=== PATIENT | male | born 1955 | race Caucasian/White ===

== ENCOUNTER → 2017-07-09 | Outpatient (CLI) | payer OTHER ==
[2017-07-09 08:05] LABS: ALT 67 U/L (21-72); AST 109 U/L (17-59); Alkaline Phosphatase 220 U/L (38-126); Anion Gap 9 mmol/L; Blood Urea Nitrogen 8 mg/dL (9-20); Calcium 8.9 mg/dL (8.4-10.2); Carbon Dioxide 27 mmol/L (22-30); Chloride 106 mmol/L (98-107); Glucose 96 mg/dL (74-99); Non-African American GFR(MDRD) >60 (>60 ml/min/1.73 sqM); Sodium 142 mmol/L (137-145); Total Bilirubin 1.8 mg/dL (0.2-1.3); Total Protein 6.5 g/dL (6.3-8.2)
[2017-07-09 08:11] LABS: CH 32.6; CHCM 33.1; HCT 46.8 % (39.0-53.0); HDW 2.28; HGB 15.7 gm/dL (13.0-17.5); MCH 33.3 pg (25.0-35.0); MCHC 33.6 g/dL (31.0-37.0); Mean Platelet Volume 7.6; RBC 4.72 m/uL (4.30-5.90); RDW 14.5 % (11.5-15.5); WBC 8.2 k/uL (3.8-10.6)
[2017-07-09 10:21] LABS: Vitamin B12 559 pg/mL (239-931)
--- NOTE | 2017-07-09 10:28 | MR ---
EXAMINATION TYPE: MR lumbar spine wo/w con DATE OF EXAM: 07/09/2017 COMPARISON: 11/07/2013 Contrast: Gadavist 8.5 mL HISTORY: Low back pain, difficulty walking TECHNIQUE: T1 and T2 axial and sagittal, postcontrast T1 sagittal and axial images of the lumbar spi ne are submitted. FINDINGS: There is no abnormal signal seen within the visualized spinal cord or paraspinal soft tissu es. Simple appearing renal cysts noted. At T12-L1 there is degenerative disc disease. Hypertrophy of the facet joint with far left lateral di sc bulging results in moderate to severe left-sided foraminal encroachment. No Canal stenosis. At L1-2 there is is loss of disc signal compatible degenerative disc disease. Moderate hypertrophic c hange of the facets seen. Neural foramina are patent. Circumferential disc bulging and borderline can al stenosis. Schmorl's node inferior endplate L1. At L2-3 there is mild degenerative disc disease and facet hypertrophy. Mild circumferential disc bulg ing but no discrete herniation or canal stenosis. Mild left foraminal encroachment noted. At L3-4 there is mild degenerative disc disease and facet hypertrophy. Mild circumferential disc bulg ing but no discrete herniation. Borderline canal stenosis noted and Bilateral mild foraminal encroach ment. At L4-5 there is mild degenerative disc disease and facet hypertrophy. Mild circumferential disc bulg ing but no discrete herniation. Mild bilateral foraminal encroachment noted. There is borderline zahra l stenosis. At L5-S1 there is degenerative disc disease but no evidence of canal stenosis or herniation. Neural f oramina are patent. Facet arthropathy is stable. IMPRESSION- 1. Multilevel degenerative disc disease and mild disc bulging with no discrete herniation. Borderline canal stenosis at L2-L3, L3-L4 and L4-L5 appears stable. 2. Multilevel mild foraminal encroachment.
== END | disposition home or self-care (01) ==
LOC: RADMRIMAIN 07:31
PROVIDERS: ATTEND Physician Assistant
DX: M48.06 Spinal stenosis, lumbar region (principal); M51.36 Other intervertebral disc degeneration, lumbar region; M51.26 Other intervertebral disc displacement, lumbar region
CPT/HCPCS: 84439; 84481; 80053; 82607; 84443; 85027; 72158; A9581

== ENCOUNTER → 2018-01-31 | Outpatient (CLI) | payer OTHER ==
[2018-01-31 11:08] LABS: Blood Urea Nitrogen 15 mg/dL (9-20)
--- NOTE | 2018-01-31 13:39 | MR ---
EXAMINATION TYPE: MR brain wo/w con DATE OF EXAM: 01/31/2018 1:30 PM COMPARISON: 11/07/2013 HISTORY: Headache CONTRAST: Patient received 8.5 mL intravenous Gadavist gadolinium contrast. Multiplanar and multispin-echo imaging of the brain was performed . Pre and post contrast enhanced i mages are obtained. The ventricles, basal cisterns and sulci overlying the cerebral convexities are mildly enlarged. There is evidence of mild periventricular white matter ischemic demyelination. Mild prominence of th e perivascular spaces. Remote deep white matter insults are also noted. No acute edema is seen on diffusion weighted imaging. There is no evidence for midline shift or mass effect. Acute intracranial hemorrhage or extra-axial collection is not evident. No enhancing lesions are seen. The paranasal sinuses and mastoid air cells are well-aerated. IMPRESSION: Age-related atrophic and chronic small vessel ischemic change. No acute intracranial process at this time. No enhancing lesions are seen.
== END ==
LOC: RADMRIMAIN 10:12
PROVIDERS: ATTEND Psychiatry & Neurology Neurology
DX: G31.1 Senile degeneration of brain, not elsewhere classified (principal); I67.82 Cerebral ischemia; R51 Headache
CPT/HCPCS: 82565; 84520; 70553; 36415; A9581

== ENCOUNTER 2018-02-25 10:07 | Emergency (ER) | payer OTHER ==
[2018-02-25] MEDS ORDERED: SODIUM CHLORIDE 0.9% 500 ML IV STA (10:28)
[2018-02-25] MEDS ORDERED: SODIUM CHLORIDE 0.9% 1,000 ML IV STA (10:28)
[2018-02-25] MEDS ORDERED: RX INFO: IV CONTRAST WAS GIVEN 1 EACH MISC MISCELLANE PRN (10:29)
[2018-02-25] MEDS ORDERED: MORPHINE SULFATE 4 MG/0.8 ML SYRINGE (INJ) IV STA (10:29)
[2018-02-25] MEDS ORDERED: IPRATROPIUM-ALBUTEROL 3 ML NEB INHALATION STA (10:38)
--- NOTE | 2018-02-25 10:38 | ED ---
ENT HPI - General Chief complaint: ENT Stated complaint: Neck Mass Time Seen by Provider: 02/25/18 10:19 Source: patient Mode of arrival: wheelchair Limitations: no limitations - History of Present Illness Initial comments: This 62-year-old white male presents with a complaint of some swelling and pain to his right neck. This is been going on for approximately 3 months. It has been progressively worsening. He now states that he has pain with any movement of his neck. He also has difficulty with swallowing. He has not been able to eat for the last 2 days. He has been able to tolerate very minimal fluids. He states that when he tries to swallow it comes back up through his nose. He also has had occasional shortness of breath but denies any chest pain or fevers. He was told several months ago that he may have some throat cancer but has not really followed up with this. He was supposed to follow up with ENT in get a biopsy but apparently did not for some reason. He does also related having some changes in his voice. His symptoms have worsened over the past couple of days. He followed up with Dr. Yang for his chronic back pain this morning and was sent to the ER for further evaluation. No other complaints or modifying factors. He states that his chronic back pain is unchanged. - Related Data Home Medications Medication Instructions Recorded Confirmed Albuterol Inhaler [Ventolin Hfa 2 puff INHALATION RT-Q4H 02/25/18 02/25/18 Inhaler] Cyclobenzaprine HCl 10 mg PO TID PRN 02/25/18 02/25/18 Ibuprofen [Ibuprofen] 800 mg PO Q8H PRN 02/25/18 02/25/18 Allergies Allergy/AdvReac Type Severity Reaction Status Date / Time No Known Allergies Allergy Verified 02/25/18 10:22 Review of Systems ROS Statement: Those systems with pertinent positive or pertinent negative responses have been documented in the HPI. ROS Other: All systems not noted in ROS Statement are negative. Past Medical History Past Medical History: Cancer, CVA/TIA, Osteoarthritis (OA), Seizure Disorder Additional Past Medical History / Comment(s): HX OF CVA, HAS SOME LT SIDE WEAKNESS, SLURRED SPEECH. SEIZURE MANY YRS AGO X1 AFTER ATTEMPT TO QUIT ALCOHOL USE. HX SUSPECTED DVT LT LEG, SURGERY DONE, NONE FOUND. History of Any Multi-Drug Resistant Organisms: None Reported Past Surgical History: Bladder Surgery Additional Past Surgical History / Comment(s): LT LEG EXPLORATION FOR POSS DVT, NONE FOUND. Past Anesthesia/Blood Transfusion Reactions: No Reported Reaction Past Psychological History: Depression Smoking Status: Current every day smoker Past Alcohol Use History: Abuse Past Drug Use History: None Reported - Past Family History Father Family Medical History: Cancer Additional Family Medical History / Comment(s): THROAT CA General Exam - General Exam Comments Initial Comments: GENERAL: The patient is well nourished and well hydrated. VITAL SIGNS: Heart rate, blood pressure, respiratory rate reviewed as recorded in nurse's notes. EYES: Pupils are round and reactive. Extraocular movements are intact. No conjunctival / lid redness or swelling. ENT: There is swelling noted to the right neck. There feels like there is a hard mass inferior to the right ear. The patient also has a significant coarse voice. Gag reflex is still present. Airway is patent. Throat is clear. NECK: Nontender. No swelling or evidence of injury. No subcutaneous emphysema. Trachea is midline. No thyroid mass. HEART: Regular rate and rhythm. Good peripheral pulses. LUNGS/CHEST: Rhonchi is noted bilaterally. No ecchymosis, subcutaneous emphysema, or tenderness. ABDOMEN: Abdomen soft without tenderness. No palpable masses or organomegaly. No peritoneal signs. No abdominal wall swelling or ecchymosis. EXTREMITIES: No extremity tenderness. Normal muscle tone and function. No thoracolumbar tenderness. NEUROLOGIC: Sensation is grossly intact. Cranial nerve exam reveals face is symmetrical, tongue is midline, speech is clear. SKIN: No abrasions or ecchymosis is noted. No induration or masses noted. PSYCHIATRIC: Alert and oriented. Appropriate behavior and judgment. Limitations: no limitations Course Vital Signs 02/25/18 02/25/18 02/25/18 10:09 10:46 10:55 Temperature 97.4 F L Pulse Rate 82 80 88 Respiratory 24 Rate Blood Pressure 137/91 O2 Sat by Pulse 95 Oximetry 02/25/18 13:01 Temperature 98.1 F Pulse Rate 75 Respiratory 18 Rate Blood Pressure 138/93 O2 Sat by Pulse 97 Oximetry Medical Decision Making - Medical Decision Making The patient was seen and examined. All diagnostics are reviewed. The EKG shows a normal sinus rhythm at a rate of 81. There is no acute ST-T wave changes identified. The NH intervals 132, QRS duration is 70, and the QTC intervals 422. The patient did receive morphine 4 mg IV for pain relief. He also received a DuoNeb breathing treatment. IV access is obtained and he is hydrated. This felt as though he likely does have a neck mass of significance. It does not appear as though he has been seeking any treatment in this regard and it is felt as though it is likely very advanced. He has not received any chemotherapy or radiation therapy as of yet. He has not had a biopsy. A computed tomography scan of the neck and chest is completed. A computed tomography scan reading does show that there is asymmetric mild to moderate soft tissue swelling and ill-defined fluid right neck versus left neck. Findings may be based on infectious or inflammatory process. Neoplasm is felt less likely but not excluded. There is suspicion for a thrombosed draining right internal jugular vein. The radiologist also notes that there is deviation of the airway to the left with thickening of the epiglottis and the arepiglottic folds with nonvisualization. There is further evidence of cirrhosis and portal hypertension with some mild to moderate underlying emphysematous changes. The laboratory overall is fairly unremarkable except for slight elevation of liver function studies. The patient does not have a fever in the emergency department. It appears that his symptoms have been fairly chronic but progressive. Infectious process seems less likely clinically but not excluded. He is started on Solu-Medrol for inflammation as well as Unasyn for possible infection. The case is discussed with ENT who recommends transfer to a larger facility specifically for the thrombosed internal jugular vein. Per history, he thinks that this is more likely due to a mass and I am agreeable. The patient is agreeable to transfer to [facility]. The case is discussed with Dr. Rai and he is agreeable to accept transfer. At this point, the patient appears to be maintaining his airway quite well. It is not felt as though he requires emergent intervention for transportation. He is in no distress on recheck. Appropriate paperwork is completed. - Lab Data Result diagrams: 02/25/18 10:40 02/25/18 10:40 Lab Results 02/25/18 02/25/18 02/25/18 Range/Units 10:40 10:40 10:40 WBC 7.0 (3.8-10.6) k/uL RBC 5.43 (4.30-5.90) m/uL Hgb 16.5 (13.0-17.5) gm/dL Hct 48.5 (39.0-53.0) % MCV 89.4 (80.0-100.0) fL MCH 30.4 (25.0-35.0) pg MCHC 34.0 (31.0-37.0) g/dL RDW 14.7 (11.5-15.5) % Plt Count 140 L (150-450) k/uL Neutrophils % 70 % Lymphocytes % 12 % Monocytes % 12 % Eosinophils % 2 % Basophils % 1 % Neutrophils # 4.8 (1.3-7.7) k/uL Lymphocytes # 0.9 L (1.0-4.8) k/uL Monocytes # 0.9 (0-1.0) k/uL Eosinophils # 0.1 (0-0.7) k/uL Basophils # 0.0 (0-0.2) k/uL PT (9.0-12.0) sec INR (<1.2) APTT (22.0-30.0) sec Sodium 143 (137-145) mmol/L Potassium 4.1 (3.5-5.1) mmol/L Chloride 102 (98-107) mmol/L Carbon Dioxide 30 (22-30) mmol/L Anion Gap 11 mmol/L BUN 13 (9-20) mg/dL Creatinine 0.74 (0.66-1.25) mg/dL Est GFR (CKD-EPI)AfAm >90 (>60 ml/min/1.73 sqM) Est GFR (CKD-EPI)NonAf >90 (>60 ml/min/1.73 sqM) Glucose 97 (74-99) mg/dL Calcium 9.5 (8.4-10.2) mg/dL Magnesium 1.7 (1.6-2.3) mg/dL Total Bilirubin 1.7 H (0.2-1.3) mg/dL AST 37 (17-59) U/L ALT 28 (21-72) U/L Alkaline Phosphatase 200 H (38-126) U/L Total Creatine Kinase 45 L (55-170) U/L CK-MB (CK-2) 0.9 (0.0-2.4) ng/mL CK-MB (CK-2) Rel Index 2.0 Troponin I <0.012 (0.000-0.034) ng/mL Total Protein 6.4 (6.3-8.2) g/dL Albumin 3.4 L (3.5-5.0) g/dL 02/25/18 Range/Units 10:40 WBC (3.8-10.6) k/uL RBC (4.30-5.90) m/uL Hgb (13.0-17.5) gm/dL Hct (39.0-53.0) % MCV (80.0-100.0) fL MCH (25.0-35.0) pg MCHC (31.0-37.0) g/dL RDW (11.5-15.5) % Plt Count (150-450) k/uL Neutrophils % % Lymphocytes % % Monocytes % % Eosinophils % % Basophils % % Neutrophils # (1.3-7.7) k/uL Lymphocytes # (1.0-4.8) k/uL Monocytes # (0-1.0) k/uL Eosinophils # (0-0.7) k/uL Basophils # (0-0.2) k/uL PT 12.3 H (9.0-12.0) sec INR 1.3 H (<1.2) APTT 26.4 (22.0-30.0) sec Sodium (137-145) mmol/L Potassium (3.5-5.1) mmol/L Chloride (98-107) mmol/L Carbon Dioxide (22-30) mmol/L Anion Gap mmol/L BUN (9-20) mg/dL Creatinine (0.66-1.25) mg/dL Est GFR (CKD-EPI)AfAm (>60 ml/min/1.73 sqM) Est GFR (CKD-EPI)NonAf (>60 ml/min/1.73 sqM) Glucose (74-99) mg/dL Calcium (8.4-10.2) mg/dL Magnesium (1.6-2.3) mg/dL Total Bilirubin (0.2-1.3) mg/dL AST (17-59) U/L ALT (21-72) U/L Alkaline Phosphatase (38-126) U/L Total Creatine Kinase (55-170) U/L CK-MB (CK-2) (0.0-2.4) ng/mL CK-MB (CK-2) Rel Index Troponin I (0.000-0.034) ng/mL Total Protein (6.3-8.2) g/dL Albumin (3.5-5.0) g/dL Disposition Clinical Impression: Neck mass, Airway compromise, Epiglottitis, COPD (chronic obstructive pulmonary disease), Dysphagia, Cirrhosis Disposition: TRANSFER TO PSYCH HOSP/UNIT Condition: Serious Is patient prescribed a controlled substance at d/c from ED?: No Time of Disposition: 13:39
[2018-02-25 10:58] LABS: Basophils % (A) 1 %; Eosinophils # (A) 0.1 k/uL (0-0.7); Eosinophils % (A) 2 %; HCT 48.5 % (39.0-53.0); HGB 16.5 gm/dL (13.0-17.5); Lymphocytes # (A) 0.9 k/uL (1.0-4.8); Lymphocytes % (A) 12 %; MCH 30.4 pg (25.0-35.0); MCV 89.4 fL (80.0-100.0); Mean Platelet Volume 7.4; Monocytes # (A) 0.9 k/uL (0-1.0); Monocytes % (A) 12 %; Neutrophils # (A) 4.8 k/uL (1.3-7.7); Neutrophils % (A) 70 %; Platelet Count 140 k/uL (150-450); RBC 5.43 m/uL (4.30-5.90); RDW 14.7 % (11.5-15.5)
[2018-02-25 11:03] LABS: INR 1.3 (<1.2); Partial Thromboplastin Time 26.4 sec (22.0-30.0); Prothrombin Time 12.3 sec (9.0-12.0)
[2018-02-25 11:06] LABS: ALT 28 U/L (21-72); AST 37 U/L (17-59); Albumin 3.4 g/dL (3.5-5.0); Alkaline Phosphatase 200 U/L (38-126); Anion Gap 11 mmol/L; Blood Urea Nitrogen 13 mg/dL (9-20); Calcium 9.5 mg/dL (8.4-10.2); Carbon Dioxide 30 mmol/L (22-30); Chloride 102 mmol/L (98-107); Creatine Kinase 45 U/L (55-170); Glucose 97 mg/dL (74-99); Magnesium 1.7 mg/dL (1.6-2.3); Potassium 4.1 mmol/L (3.5-5.1); Sodium 143 mmol/L (137-145); Total Bilirubin 1.7 mg/dL (0.2-1.3); Total Protein 6.4 g/dL (6.3-8.2)
[2018-02-25 11:17] LABS: Creatine Kinase MB 0.9 ng/mL (0.0-2.4); Troponin I <0.012 ng/mL (0.000-0.034)
--- NOTE | 2018-02-25 12:29 | CT ---
EXAMINATION TYPE: CT soft tissue neck w con, CT chest w con DATE OF EXAM: 02/25/2018 HISTORY: Rt neck mass and swelling. COMPARISON: NONE CT DLP: 662.91 (accession [id number]), 643.71 (accession [id number]) mGycm. Automated Exposure Control f or Dose Reduction was Utilized. TECHNIQUE: CT scan of the neck is performed with IV Contrast, patient injected with 50 mL of Isovue 300, axial images are obtained, coronal and sagittal reformatted images are reviewed. FINDINGS: NECK: A metallic BB is placed at level of palpable abnormality right lateral neck at superior aspect of hyo id bone axial image 32. There is asymmetric mild to moderate subcutaneous edema in the right neck wit h prominent but subcentimeter right-sided lymph nodes identified slightly larger in right neck versus left neck. For reference is 12 x 9 mm lymph node at level of true vocal cords axial image 47. No wel l-formed fluid collection or drainable abscess is seen. There is suggestion of central luminal hypode nsity or thrombus within the right internal jugular vein which appears prominent are expanded submand ibular level axial image 65. Advise ultrasound confirmation. Airway shows thickening of the epiglottis, there is marked thickening of the artery upper glottic fol ds with nonvisualization of right piriform sinus. Airway appears deviated to left of midline. Other: There is reversal of normal cervical curvature centered at mid cervical levels. There are mult ilevel uncovertebral facet degenerative changes. There is old fracture deformity of right clavicle no sabrina. CHEST: LUNGS: There is mild to moderate underlying emphysematous change with scattered fibrosis and subpleur al bleb formation in both lung apices. There is additional bibasilar scarring and/or atelectasis. No suspicious parenchymal nodule or mass is present bilaterally. There is mild central peribronchial cuf fing likely on basis of underlying COPD. MEDIASTINUM: There are no greater than 1 cm hilar or mediastinal lymph nodes. There are prominent but subcentimeter thoracic lymph nodes including prevascular space, AP window, subcarinal, and left madeline r levels No cardiomegaly or pericardial effusion is seen. Moderate to severe coronary artery calcif ication is noted which is noted marker for coronary artery disease. There is ectatic course to the de scending aorta. OTHER: Liver is small in size with lobulated peripheral nodular contour, findings are consistent with underlying cirrhosis. Gallbladder has distended margins likely on basis of underlying liver failure. Visualized spleen is enlarged. There are calcified subcentimeter peripancreatic lymph nodes likely p roduct of old granulomatous disease. There is slight scoliotic curvature with multilevel spurring in the spine. IMPRESSION: 1. Asymmetric mild to moderate soft tissue swelling and ill-defined fluid right neck versus left neck . Findings may be on basis of infectious or inflammatory process. Neoplasm felt less likely but not e xcluded. There is suspicion for thrombosed draining right internal jugular vein. Follow-up ultrasound advised to further assess this. 2. There is cirrhosis with underlying portal hypertension and splenomegaly is present., Correlate cli nically. 3. There is background mild to moderate underlying emphysematous change.
[2018-02-25] MEDS ORDERED: methylPREDNISolone SOD SUCCI 125 MG/2 ML VIAL IV STA (13:01)
[2018-02-25] MEDS ORDERED: AMPICILLIN-SULBACTAM 3 GM in SODIUM CHLORIDE 0.9% 100 ML IVPB STA (13:02)
[2018-02-25 13:04] VITALS: RESP 18; TEMP 98.1
[2018-02-25 14:07] VITALS: BP 126/71; PULSE 71
== END 2018-02-25 14:33 ==
LOC: EC 10:07
DX: J05.10 Acute epiglottitis without obstruction (principal); J44.9 Chronic obstructive pulmonary disease, unspecified; K74.60 Unspecified cirrhosis of liver; K76.6 Portal hypertension; J98.8 Other specified respiratory disorders; R94.5 Abnormal results of liver function studies; F17.200 Nicotine dependence, unspecified, uncomplicated; Z79.899 Other long term (current) drug therapy; Z80.8 Family history of malignant neoplasm of other organs or systems; Z85.9 Personal history of malignant neoplasm, unspecified
CPT/HCPCS: 99285; 96365; 96375 ×2; 96361 ×3; 36415; 94640; 93005; 80053; 82550; 82553; 83735; 84484; 85025; 85610; 85730; 87040; 70491; 71260; J2930; J0295; Q9967; J2270